=== PATIENT | male | born 1950 | race Hispanic/Latino ===

== ENCOUNTER → 2017-03-31 | Outpatient (CLI) | payer OTHER ==
[~2017-03-31] MED LIST: AEC81 PO; ALBU8.5H8 IH; CALC667C10 PO; CITA-107 PO; CLON0.1T PO; CLOP75TA14 PO; DOXY100T2 PO; FLUT16H NS; FOLI0.8T22 PO; GABA-318 PO; METO25TA6 PO; ROPI0.5T5 PO; SEVE800T7 PO; SIMV20TA2 PO; TRAZ-147 PO
== END | disposition home or self-care (01) ==
LOC: RAH 10:36
PROVIDERS: ATTEND Internal Medicine
DX: S32.028A Other fracture of second lumbar vertebra, initial encounter for closed fracture (principal); M51.16 Intervertebral disc disorders with radiculopathy, lumbar region; X58.XXXA Exposure to other specified factors, initial encounter; Y93.89 Activity, other specified; Y92.89 Other specified places as the place of occurrence of the external cause; Y99.8 Other external cause status
CPT/HCPCS: 72148

== ENCOUNTER → 2017-06-21 | Outpatient (CLI) | payer OTHER ==
[~2017-06-21] MED LIST changes: +HEPARIN SODIUM 1000UNIT/ML 10ML VIAL ONE; +IOPAMIDOL-370 100 ML VIAL IV ONE; +ISOVUE-370 50ML VIAL IV ONE; +MEPERIDINE-PF 25 MG/ML SYG ONE; +MIDAZOLAM HCL 1 MG/ML 2ML VIAL ONE; +NITROGLYCERIN 5 MG/ML 10 ML VIAL IV ONE
== END | disposition home or self-care (01) ==
LOC: OIH 09:38
PROVIDERS: ATTEND Internal Medicine
DX: J44.9 Chronic obstructive pulmonary disease, unspecified (principal)
CPT/HCPCS: 71046; J1644; J2175; J2250; J3490; Q9967

== ENCOUNTER → 2017-06-30 | Outpatient (CLI) | payer OTHER ==
[~2017-06-30] MED LIST changes: -HEPARIN SODIUM 1000UNIT/ML 10ML VIAL ONE; -IOPAMIDOL-370 100 ML VIAL IV ONE; -ISOVUE-370 50ML VIAL IV ONE; -MEPERIDINE-PF 25 MG/ML SYG ONE; -MIDAZOLAM HCL 1 MG/ML 2ML VIAL ONE; -NITROGLYCERIN 5 MG/ML 10 ML VIAL IV ONE; -TRAZ-147 PO; +TRAZ-187 PO
== END | disposition home or self-care (01) ==
LOC: OIH 11:19
PROVIDERS: ATTEND Internal Medicine
DX: M16.11 Unilateral primary osteoarthritis, right hip (principal); M25.851 Other specified joint disorders, right hip; Z91.81 History of falling
CPT/HCPCS: 73502

== ENCOUNTER → 2018-05-25 | Outpatient (CLI) | payer OTHER ==
[~2018-05-25] MED LIST changes: -GABA-318 PO; +GABA600T10 PO
== END | disposition home or self-care (01) ==
LOC: RAH 13:51
PROVIDERS: ATTEND Orthopaedic Surgery
DX: S82.202A Unspecified fracture of shaft of left tibia, initial encounter for closed fracture (principal); X58.XXXA Exposure to other specified factors, initial encounter; Y93.89 Activity, other specified; Y92.89 Other specified places as the place of occurrence of the external cause; Y99.8 Other external cause status
CPT/HCPCS: 73700

== ENCOUNTER → 2018-06-03 | Outpatient (CLI) | payer OTHER | END | disposition home or self-care (01) | LOC: OIH 09:39 | PROVIDERS: ATTEND Internal Medicine | DX: R91.8 Other nonspecific abnormal finding of lung field (principal); I12.0 Hypertensive chronic kidney disease with stage 5 chronic kidney disease or end stage renal disease; N18.6 End stage renal disease; Z99.2 Dependence on renal dialysis; I70.0 Atherosclerosis of aorta; M47.815 Spondylosis without myelopathy or radiculopathy, thoracolumbar region | CPT/HCPCS: 71046 ==

== ENCOUNTER 2018-07-06 09:08 | Inpatient (IN) | payer OTHER | END 2018-07-09 18:45 | disposition home health service (06) | LOC: DAHIP 09:08 → 4AH 17:19 | PROC: 0SWW0JZ Revision of Synthetic Substitute in Left Knee Joint, Tibial Surface, Open Approach (ICD-10-PCS; principal; 2018-07-06 15:05) | DX: T84.093A Other mechanical complication of internal left knee prosthesis, initial encounter (principal) ==

== ENCOUNTER 2018-08-09 17:39 | Emergency (ER) | payer OTHER ==
[~2018-08-09 17:39] MED LIST changes: -AEC81 PO; -ALBU8.5H8 IH; +AMLO10TA7 PO; +ASPI-1012 PO; -CALC667C10 PO; -CITA-107 PO; +CLIN300C9 PO; -CLON0.1T PO; -CLOP75TA14 PO; +DOXY-252 PO; -DOXY100T2 PO; -FLUT16H NS; -FOLI0.8T22 PO; +GABA-533 PO; -GABA600T10 PO; +GLIM2TAB3 PO; +HYDR-4457 PO; +LOSA50TA64 PO; -METO25TA6 PO; +PREG100C PO; -SEVE800T7 PO; -SIMV20TA2 PO; -TRAZ-187 PO; +TYLENOL ARTHRITIS PO
[2018-08-09] MEDS ORDERED: LIDOCAINE 5% TOPICAL PATCH TP ONE (18:41)
[2018-08-09 18:58] LABS: BASOPHILS % (AUTO) 1.3 % (0.0-5.0); EOSINOPHILS % (AUTO) 1.4 % (0.0-8.0); HEMATOCRIT 27.6 % (42-54); LYMPHOCYTES % (AUTO) 7.7 % (21.0-51.0); MEAN CORPUSCULAR HEMOGLOBIN 31.7 pg (27.0-33.0); MEAN CORPUSCULAR HGB CONC 33.5 g/dL (32.0-36.0); MEAN CORPUSCULAR VOLUME 94.6 fL (79-99); MONOCYTES % (AUTO) 8.3 % (3.0-13.0); NEUTROPHILS % (AUTO) 81.3 % (40.0-77.0); NUCLEATED RED BLOOD CELLS 0.1 % (0.0-0.19); PLATELET COUNT (AUTO) 181 K/uL (130-400); RED BLOOD CELL COUNT(AUTO) 2.92 MIL/uL (4.50-6.20); RED CELL DISTRIBUTION WIDTH 15.6 % (11.0-15.5); WHITE BLOOD COUNT (AUTO) 5.1 K/uL (4.8-10.8)
[2018-08-09 19:19] LABS: CREATININE 4.2 mg/dL (0.5-1.5); POTASSIUM 4.9 mmol/L (3.5-5.1)
== END 2018-08-09 20:53 | disposition home or self-care (01) ==
LOC: EDH 17:39
DX: M25.511 Pain in right shoulder (principal); I12.0 Hypertensive chronic kidney disease with stage 5 chronic kidney disease or end stage renal disease; N18.6 End stage renal disease; Z99.2 Dependence on renal dialysis; Z98.890 Other specified postprocedural states
CPT/HCPCS: 36415; 71045; 73030; 80048; 84484; 85025; 93005

== ENCOUNTER → 2018-11-16 | Outpatient (CLI) | payer OTHER | END | disposition home or self-care (01) | LOC: OIH 10:20 | PROVIDERS: ATTEND Internal Medicine | DX: M43.16 Spondylolisthesis, lumbar region (principal); M41.86 Other forms of scoliosis, lumbar region; M13.842 Other specified arthritis, left hand; M54.16 Radiculopathy, lumbar region | CPT/HCPCS: 72100; 73090 ==